=== PATIENT | male | born 1965 | race African-American/Black ===

== ENCOUNTER 2018-10-27 10:04 | Emergency (ER) | payer OTHER ==
[~2018-10-27] VITALS: Ht 180.3 cm; Wt 92.2 kg
[2018-10-27] MEDS ORDERED: NAPROSYN500 MG PO (10:34)
[2018-10-27] MEDS ORDERED: ULTRAM50 MG PO (10:34)
[2018-10-27] MEDS ORDERED: CYCLOBENZAPRINE5 MG PO (10:34)
[2018-10-27] MEDS ORDERED: KETOROLAC TROMETHAMINE 30 MG/ML VIAL ONE (10:41)
[2018-10-27] MEDS ORDERED: KETOROLAC TROMETHAMINE 60 MG/2 ML VIAL IM NR (10:45)
--- NOTE | 2018-10-27 11:37 | Diagnostic Imaging Report ---
Lumbar spine series, 3 views. History: Back pain. Comparison: None available. Discussion: The paraspinal soft tissues are unremarkable. The alignment of the lumbar spine is normal. There is no evidence of fracture, spondylolisthesis, or spondylolysis. There is severe disc space narrowing at L5-S1 with osteophytosis. The remaining intervertebral disc spaces are within normal limits. IMPRESSION: Degenerative changes in the lumbosacral spine. Signed by: Ankur Vuong on 10/27/2018 11:33 AM
[2018-10-27 15:25] VITALS: BP 134/90
== END 2018-10-27 12:03 | disposition home or self-care (01) ==
LOC: FSED 10:04
DX: M54.5 Low back pain (principal); S39.012A Strain of muscle, fascia and tendon of lower back, initial encounter; X50.0XXA Overexertion from strenuous movement or load, initial encounter; Y92.008 Other place in unspecified non-institutional (private) residence as the place of occurrence of the external cause
CPT/HCPCS: 72100; 96372; 99283; J1885

== ENCOUNTER 2018-12-29 18:25 | Emergency (ER) | payer OTHER ==
[~2018-12-29] VITALS: Ht 180.3 cm; Wt 92.1 kg
[~2018-12-29 18:25] MED LIST: CYCLOBENZAPRINE5 MG PO; NAPROSYN500 MG PO; ULTRAM50 MG PO
--- OUTSIDE RECORDS SUMMARY | 2018-12-29 18:28 | XMS REPORT | Encounter Summary ---
Author Organization Unknown Address [address] [place] [address] Phone [phone] Care Team Providers Care Jumbo Operator Name Role Phone Dr. Edu aHmilton 3 [phone] Reason for Visit Annual physical - male with PSA; hypertension Instructions 1. Adult health examination urinalysis, dipstick CBC w/ auto diff CMP, serum or plasma lipid panel, serum TSH, serum or plasma HbA1c (hemoglobin A1c), blood 2. Depression screening learning about depression 3. Body mass index 30+ - obesity 4. Screening for malignant neoplasm of prostate PSA, serum or plasma 5. Screening for malignant neoplasm of colon fecal occult blood, stool colonoscopy referral 6. Benign essential hypertension Lotrel 5 mg-10 mg capsule 7. Large prostate Uroxatral 10 mg tablet,extended release 8. Primary erectile dysfunction Viagra 50 mg tablet urology referral Discussion Note: None recorded. Plan of Care Reminders Provider Appointments Return to Office on or around 06/13/2018 Edu Hamilton Jr, MD Lab Urinalysis, Dipstick 03/16/2018 [facility] CBC W/ Auto Diff 03/16/2018 [facility] CMP, Serum or Plasma 03/16/2018 [facility] Lipid Panel, Serum 03/16/2018 [facility] TSH, Serum or Plasma 03/16/2018 [facility] Fecal Occult Blood, Stool 03/16/2018 [facility] PSA, Serum or Plasma 03/16/2018 [facility] HbA1C (Hemoglobin a1C), Blood 03/16/2018 [facility] Referral Colonoscopy Referral 03/16/2018 Urology Referral 03/16/2018 Procedures None recorded. Surgeries None recorded. Imaging None recorded. Medications Name Start Date Lotrel 5 mg-10 mg capsule Take 1 capsule every day by oral route. Uroxatral 10 mg tablet,extended release Take 1 tablet every day by oral route. Viagra 50 mg tablet Take 1 tablet as needed by oral route. Medications Administered None recorded. Vitals Height Weight BMI Blood Pressure 5 ft 10 in 213 lbs 30.6 kg/m2 120/72 mm[Hg] Lab Results None recorded. Allergies Code Code System Name Reaction Severity Status Onset NKDA Problems Name Status Onset Date Source Large Prostate Active 11/29/2017 Benign Essential Hypertension Active 03/16/2018 Primary Erectile Dysfunction Active 03/16/2018 Procedures None recorded. Vaccine List Vaccine Type influenza, injectable, quadrivalent, preservative free 11/29/20170.5 mL influenza, unspecified formulation 01/29/2017 Tdap 01/29/2017 Social History Smoking Status Never Smoker Past Encounters 03/16/2018 Adult Health Examination; Depression Screening; Body Mass Index 30+ - Obesity; Screening for Malignant Neoplasm of Prostate; Screening for Malignant Neoplasm of Colon; Benign Essential Hypertension; Large Prostate; Primary Erectile Dysfunction Edu Hamilton Jr, MD: [address] [facility] [address] [facility] [address], [place] [address], Ph. History of Present Illness Hypertension Reported By: Patient HPI: Severity: mild. Onset/Timing: gradual onset. Alleviating Factors: relieved with rest, medication. Self Care: not under emotional stress, blood pressure goal: 130/80. Associated Symptoms: no shortness of breath, no fatigue, no decline in exercise capacity Note:Patient presents for routine medication refill . Currently without new complaint. Review of Systems Comprehensive General Adult ROS Reported By: Patient Constitutional: Constitutional: no significant weight gain, no significant weight loss Cardiovascular: Cardiovascular: no chest pain, no shortness of breath when walking Respiratory: Respiratory: no cough, no wheezing, no shortness of breath Endocrine: Endocrine: no fatigue Physical Exam General Adult Exam (male), Cardiology Exam Reported By: Patient Constitutional: General Appearance: well-nourished, well-developed, appears stated age. Level of Distress: NAD Psychiatric: Insight: good judgement. Mental Status: active and alert, normal mood, normal affect. Orientation: to time, to place, to person, oriented to time, place, and person. Memory: recent memory normal, remote memory normal Lungs: Auscultation: good air movement, CTA except as noted, no wheezing, no rales/crackles, no rhonchi Cardiovascular: Heart Auscultation: RRR, normal S1, no rubs, no gallops, physiologically split S2, no click. Pulses including femoral / pedal: full and equal in all extremities except if noted. Systolic Murmur: not heard. Diastolic Murmur: not heard Musculoskeletal:: Extremities: no cyanosis, no edema, no peripheral signs of emboli Skin: Inspection and palpation: warm and dry. Nails: no clubbing Back: Thoracolumbar Appearance: normal curvature, no thoracic deformity, no chest wall tenderness Peripheral Pulses: Radial Pulse: normal
--- OUTSIDE RECORDS SUMMARY | 2018-12-29 18:28 | XMS REPORT ---
Author Author [facility] Address Unknown Phone Unavailable Care Team Providers Care Ball Rolling Machine Operator Name Role Phone Monica PINEDA Unavailable Unavailable Payers Payer Name Policy Type Policy Number Effective Date Expiration Date Problems This patient has no known problems. Allergies, Adverse Reactions, Alerts Allergy Name Allergy Type Status Severity Reaction(s) Onset Date Inactive Date Treating Clinician Comments No Known Allergies DA Active U 2018-03-14 00:00:00 No Known Allergies DA Active U 2017-12-22 00:00:00 Medications This patient has no known medications. Results Test Description Test Time Test Comments Text Results Atomic Results Result Comments L [facility] 2-3 [facility] 2018-10-27 11:32:00 [facility] [address] [place] [address] Patient Name: SHAUNA BABB MR #: [id number] : 1965 Age/Sex: 52/M Req #: [id number] Adm Physician: Ordered by: RC PINEDA MD Report #: [id number] Location: FS Room/Bed: Procedure: [id number] HOPD/L SPINE 2-3 VEWS - HOPD Exam Date: 10/27/18 Exam Time: 1044 REPORT STATUS: Signed Lumbar spine series, 3 views. History: Back pain. Comparison: None available. Discussion: The paraspinal soft tissues are unremarkable. The alignment of the lumbar spine is normal. There is no evidence of fracture, spondylolisthesis, or spondylolysis. There is severe disc space narrowing at L5-S1 with osteophytosis. The remaining intervertebral disc spaces are within normal limits. IMPRESSION: Degenerative changes in the lumbosacral spine. Signed by: Ankur Nieves on 10/27/2018 11:33 AM Dictated By: ANKUR NIEVES MD 1133 Transcribed By: BRIELLE on 10/27/18 1133 COPY TO: RC PINEDA MD
--- OUTSIDE RECORDS SUMMARY | 2018-12-29 18:28 | XMS REPORT | Encounter Summary ---
Author Organization Unknown Address [address] [place] [address] Phone [phone] Care Team Providers Care Remote Sensing Advisor Name Role Phone Dr. Edu Hamilton 3 [phone] Reason for Visit Bilateral low back pain; cough / congestion Instructions 1. Acute low back pain cyclobenzaprine 10 mg tablet diclofenac sodium 75 mg tablet,delayed release XR, lumbosacral spine, 2 or 3 view 2. Seasonal allergy triamcinolone acetonide 40 mg/mL suspension for injection dexamethasone 4 mg/mL injection solution Discussion Note: None recorded. Patient educational handouts: No information available. Plan of Care Reminders Provider Appointments None recorded. Lab None recorded. Referral None recorded. Procedures None recorded. Surgeries None recorded. Imaging XR, Lumbosacral Spine, 2 or 3 View 04/11/2018 Medications Name Start Date alfuzosin ER 10 mg tablet,extended release 24 hr Take 1 tablet every day by oral route. amlodipine 5 mg-benazepril 10 mg capsule Take 1 capsule every day by oral route. cyclobenzaprine 10 mg tablet Take 1/2 - 1 tablet po bid PRN and q bedtime may cause drowsiness diclofenac sodium 75 mg tablet,delayed release Take 1 tablet twice a day by oral route for 15 days. sildenafil 50 mg tablet Take 1 tablet as needed by oral route. tramadol 37.5 mg-acetaminophen 325 mg tablet Medications Administered None recorded. Vitals Height Weight BMI Blood Pressure 5 ft 10 in 211 lbs 30.3 kg/m2 132/72 mm[Hg] Lab Results Date Name Specimen Result Interpretation Description Value Range Status Address 03/16/2018 CBC W/ Auto Diff Low Wbc 4.10 x10*3/L 4.23-9.07 x10*3/L [facility] Laboratory: [address] Low Rbc 4.22 10*12/L 4.63-6.08 10*12/L [facility] Laboratory: [address] Low Hemoglobin 12.60 g/dL 13.70-17.50 g/dL Final [facility] Laboratory: [address] [place] Low Hematocrit 37.1 % 40.1-51.0 % Final [facility]: [address] [facility] Mcv 87.9 fL 80.0-100.0 fL Final [facility]: [address] [facility] Mch 29.9 pg 25.7-32.2 pg Final [facility]: [address] [facility] Mchc 34.0 g/dL 32.3-36.5 g/dL Final [facility]: [address] [facility] RDW-SD 41.5 fL 35.1-43.9 fL Final [facility]: [address] [facility] Platelet Count 299.0 k/uL 163.0-337.0 k/uL Final [facility]: [address] [facility] Mpv 10.7 fL 7.5-11.5 fL Final [facility]: [address] [facility] Neut% 60.0 % 34.0-67.9 % Final [facility]: [address] [facility] Lymph% 23.7 % 21.8-53.1 % Final [facility]: [address] [facility] High Mon% 12.9 % 5.3-12.2 % Final [facility]: [address] [facility] Eos% 2.4 % 0.8-7.0 % Final [facility]: [address] [facility] Baso% 1.0 % 0.2-1.2 % Final [facility] Laboratory: [address] [place] [address] Neut# 2.5 x10*3/L 1.8-5.4 x10*3/L Final [facility]: [address] [facility] Low Lymph# 1.0 x10*3/L 1.3-3.6 x10*3/L Final [facility]: [address] [place] [address] Mon# 0.5 x10*3/L 0.3-0.8 x10*3/L Final [facility]: [address] [facility] [place] Eos# 0.10 x10*3/L 0.04-0.54 x10*3/L Final [facility]: [address] [place] Baso# 0.04 x10*3/L 0.01-0.08 x10*3/L Final [facility]: [address] [facility] 03/16/2018 CMP, Serum or Plasma Alt 36 U/L 0-55 U/L Final [facility] Laboratory: [address] Ast 23 U/L 5-34 U/L Final [facility] Laboratory: [address] Bun 9.7 mg/dL 8.4-25.7 mg/dL Final [facility] Laboratory: [address] Alk Phos 64 unit/L 40-150 unit/L Final [facility] Laboratory: [address] Glucose 96 mg/dL 70-99 mg/dL Final [facility] Laboratory: [address] Albumin 3.9 g/dL 3.5-5.0 g/dL Final [facility] Laboratory: [address] Creatinine 1.04 mg/dL 0.72-1.25 mg/dL Final [facility] Laboratory: [address] eGFR Non- >60 mL/min/1.73m2 Final [facility] Laboratory: [address] Total Bilirubin 0.5 mg/dL 0.2-1.2 mg/dL Final [facility] Laboratory: [address] eGFR - >60 mL/min/1.73m2 Final [facility]: [address] Sodium 142 mEq/L 136-145 mEq/L Final [facility] Laboratory: [address] Potassium 4.2 mEq/L 3.5-5.1 mEq/L Final [facility] Laboratory: [address] High Chloride 108 mmol/L 98-107 mmol/L Final [facility] Laboratory: [address] Total Protein 6.9 g/dL 6.4-8.3 g/dL Final [facility] Laboratory: [address] Calcium 9.4 mg/dL 8.4-10.2 mg/dL Final [facility] Laboratory: [address] Co2 24.6 mmol/L 22.0-29.0 mmol/L Final [facility] Laboratory: [address] Anion Gap 9 calc Final [facility] Laboratory: [address] [place] [address], [place] 03/16/2018 Lipid Panel, Serum Hdl 53 mg/dL 40-60 mg/dL Final [facility] Laboratory: [address] Triglyceride 99 mg/dL 0-149 mg/dL Final [facility] Laboratory: [address] VLDL Calc. 20 mg/dL Final [facility] Laboratory: [address] cholesterol/HDL Ratio 3.2 mg/dL Final [facility] Laboratory: [address] non-HDL Cholesterol Calc. 115 mg/dL 0-160 mg/dL Final [facility]: [address] Cholesterol 168 mg/dL 0-199 mg/dL Final [facility] Laboratory: [address] LDL Calc. 95 mg/dL 0-130 mg/dL Final [facility] Laboratory: [address] [place] [address], [place] 03/16/2018 TSH, Serum or Plasma Tsh 1.144 uIU/mL 0.350-4.940 uIU/mL Final [facility] Laboratory: [address] 03/16/2018 PSA, Serum or Plasma PSA, Total 0.98 NG/mL <4.00 NG/mL Final [facility] Laboratory: [address] [place] [address], [place] 03/16/2018 HbA1C (Hemoglobin a1C), Blood A1C W/eag 5.6 % 1.0-5.7 % Final [facility] Laboratory: [address] Average Blood Glucose 114 mg/dL Final [facility] Laboratory: [address] 03/16/2018 Iron + TIBC + Ferritin, Serum Ferritin 113.78 NG/mL 21.81- 274.66 NG/mL Final [facility] Laboratory: [address] Iron, Total 70 mcg/dL 50-180 mcg/dL Final [facility] Laboratory: [address] [address], [place] Transferrin 279 mg/dL 174-364 mg/dL Final [facility] Laboratory: [address] Total Iron Binding Capacity (Calculated) 399 mcg/dL 250-425 mcg/dL Final [facility] Laboratory: [address] % Saturation 17.5 % 15.0-60.0 % Final [facility] Laboratory: [address] [address], [place] 03/16/2018 Vitamin B12 + Folate, Serum or Blood Folate 9.6 NG/mL Final [facility] Laboratory: [address] Vitamin B12 599 pg/mL 213-816 pg/mL Final [facility] Laboratory: [address] [address], [place] 03/16/2018 Urinalysis, Dipstick Color Color light yellow [facility] Hobby: [address], [place] Color Appearance clear [facility]: [address], [place] Color Glucose negative [facility]obby: [address], [place] Color Bilirubin negative [facility]: [address], [place] Color Ketones negative [facility] Hobby: [address], [place] Color Specific [place] 1.015 [facility] [address] [place] Color Blood negative [facility] Hobby: [address] [place] Color PH 8.5 [facility] Hobby: [address] [place] Protein negative [facility]obby: [address] [place] Color Urobilinogen 0.2 [facility]: [address], [place] Color Nitrites negative [facility] Hobby: [address] [place] Color Leukocytes negative [facility] Hobby: [address], [place] 03/14/2018 Fecal Occult Blood, Stool Fecal Globin by Immunochemistry not detected Final [facility] Laboratory: [address] [place] [address], [place] Allergies Code Code System Name Reaction Severity Status Onset NKDA Problems Name Status Onset Date Source Large Prostate Active 11/29/2017 Benign Essential Hypertension Active 03/16/2018 Primary Erectile Dysfunction Active 03/16/2018 Procedures Date Name Performed by 04/11/2018 XR, Lumbosacral Spine, 2 or 3 View Information not available Vaccine List Vaccine Type influenza, injectable, quadrivalent, preservative free 11/29/20170.5 mL influenza, unspecified formulation 01/29/2017 Tdap 01/29/2017 Social History Smoking Status Never Smoker Past Encounters 04/11/2018 Acute Low Back Pain; Seasonal Allergy Edu Hamilton Jr, MD: [address] [address], Ph. 03/16/2018 Adult Health Examination; Depression Screening; Body Mass Index 30+ - Obesity; Screening for Malignant Neoplasm of Prostate; Screening for Malignant Neoplasm of Colon; Benign Essential Hypertension; Large Prostate; Primary Erectile Dysfunction Edu Hamilton Jr, MD: [address] [address], Ph. History of Present Illness Musculoskeletal Pain Reported By: Patient HPI: Location: pain is not radiating, lumbar spine. Quality: dull. Severity: worsening. Duration: present <1 month. Timing: constant. Context: trauma, unusual activity. Alleviating factors: rest. Aggravating factors: movement/positioning. Associated Symptoms: no fever, no weak limbs, no tingling, no numbness of the legs/feet Acute Low Back Pain Reported By: Patient URI - AMS Reported By: Patient Upper Respiratory Symptoms: Onset/Timing: gradual. Duration: constant. Location: head, throat. Quality: no sore throat, nasal congestion/discharge, dry cough. Severity: moderate. Context: no sick contacts, no foreign travel. Associated Symptoms: no fever, no chills, no shortness of breath, no wheezing, no significant weight loss, no diarrhea, no nausea Review of Systems Comprehensive General Adult ROS, Comprehensive Adult Problem ROS Reported By: Patient Constitutional: Constitutional: no fever, no night sweats, no significant weight loss Eyes: Eyes: no vision change ENMT: Ears: no difficulty hearing, no ear pain. Mouth/Throat: no sore throat Cardiovascular: Cardiovascular: no chest pain, no shortness of breath when walking Respiratory: Respiratory: no wheezing, no shortness of breath, cough Gastrointestinal: Gastrointestinal: no nausea, normal appetite, no diarrhea Musculoskeletal: Musculoskeletal: no arthralgias/joint pain, no soft tissue swelling, no joint swelling, myalgia Integumentary: Skin: no rashes, no redness, no skin lesions, no swelling Neurologic: Neurologic: no weakness, no numbness. Neuro: no tingling Endocrine: Endocrine: no fatigue Hematologic/Lymphatic: Hematologic/Lymphatic no bruising Allergic/Immunologic: Allergy/Immunologic: runny nose Constitutional: Constitutional: no significant weight change Physical Exam Musculoskeletal and Joint Exam, Upper Respiratory Infection Exam Comprehensive, Upper Respiratory Infection Exam, Low Back Pain Reported By: Patient Musculoskeletal System: Musculoskeletal System normal range of motion in all peripheral joints. Right Hip: no tenderness. Left Hip: no tenderness. Lumbar / Lumbosacral Spine normal lordosis, tenderness on palpation, spasms. Soft Tissue/Bursa: tender point none Constitutional: General Appearance in no acute distress Head: Sinuses no tenderness Ears: Right External auditory canal normal appearance, no erythema. Left External auditory canal normal appearance, no erythema. Right Tympanic membrane dull, bulging. Left Tympanic membrane: dull, bulging Nose: Nasal Skin: no lesion, no lacerations. Nasal Mucosa normal, pink and moist Oral Cavity/Mouth: Oral Mucosa: normal, moist, no lesions. Posterior pharynx: lymphoid hyperplasia (cobblestoning) Lymph Nodes: Cervical no palpable lymph node enlargement Neck: Neck symmetrical, trachea midline Lungs: Respiratory effort unlabored. Auscultation breath sounds normal, no wheezing, no rales / crackles, no rhonchi Cardiovascular System: Auscultation regular rate and rhythm, no murmur, no rubs
[2018-12-29] MEDS ORDERED: CYCLOBENZAPRINE HCL 10 MG TAB ONE (18:50)
[2018-12-29] MEDS ORDERED: TRAMADOL HCL 50 MG TAB ONE (18:51)
[2018-12-29] MEDS ORDERED: TRAMADOL HCL 50 MG TAB PO ONE (19:00)
[2018-12-29] MEDS ORDERED: CYCLOBENZAPRINE HCL 10 MG TAB PO ONE (19:00)
== END 2018-12-29 18:56 | disposition home or self-care (01) ==
LOC: FSED 18:25
DX: S33.5XXA Sprain of ligaments of lumbar spine, initial encounter (principal); S32.058A Other fracture of fifth lumbar vertebra, initial encounter for closed fracture; W01.0XXA Fall on same level from slipping, tripping and stumbling without subsequent striking against object, initial encounter; Y93.89 Activity, other specified; Y92.009 Unspecified place in unspecified non-institutional (private) residence as the place of occurrence of the external cause
CPT/HCPCS: 99283